=== PATIENT | male | born 1985 | race Caucasian/White ===

== ENCOUNTER 2024-03-31 08:05 | Outpatient (CLI) | payer BC, SELFPAY ==
--- NOTE | 2024-03-31 08:24 | ECG_ITS ---
SEE SCANNED COPY FOR CONFIRMED REPORT MTDD
== END 2024-03-31 08:06 | disposition home or self-care (01) ==
LOC: ANHSURGERY 08:08
PROVIDERS: PCP Family Medicine Adolescent Medicine; Visit Provider Surgery
DX: Z01.818 Encounter for other preprocedural examination (principal); K40.90 Unilateral inguinal hernia, without obstruction or gangrene, not specified as recurrent; E78.00 Pure hypercholesterolemia, unspecified
CPT/HCPCS: 36415; 86850; 86900; 86901

== ENCOUNTER 2024-04-04 00:50 | Day surgery (SDC) | payer BC, SELFPAY ==
[2024-03-27 13:33] VITALS: BMI 28.0
--- NOTE | 2024-03-27 13:46 | PC.NURSE ---
Report to the Outpatient Waiting Room, entrance under the green pavilion located off [facility], at time 0930 on date 04/04/2024. Planned Procedure Time: 11:30. Time changes happen often and if your time is changed the preop area will call you the afternoon before. - You and your visitor will be asked to self-screen and do not enter if you have any COVID symptoms. - A mask is optional within the hospital at this time. Patients may have clear liquids (water, carbonated beverages, clear teas, apple juice) until 3 hours prior to surgery with a maximum of 20 ounces. - No food from midnight until time of surgery - Infants may have breast milk until 4 hours before surgery, formula 6 hours prior to surgery. - Children will be allowed to drink immediately following surgery. If applicable, please bring a bottle or sippy cup to assist with drinking. Juice, water, soda, and popsicles are readily available. For infants on formula, please bring formula the day of surgery. Pacifiers are allowed. Take the following medications with a SIP of water the morning of surgery: N/A DO NOT STOP ANY OF YOUR OTHER PRESCRIPTION MEDICATIONS PRIOR TO SURGERY ?EXCEPT THE FOLLOWING Medications to discontinue per physician Multiviamin Date to take last dose 04/02/2024 Please no make-up, nail luxembourgish, hairspray, perfume, deodorant, or body powder the day of surgery. No jewelry (including any body piercings) or valuables the day of surgery, leave them at home. Please take a shower or bath the night before, or the morning of, surgery with an antibacterial soap. Wear comfortable, loose fitting clothing. Children are encouraged to wear pajamas. - Jewelry must be removed prior to entering the operating room. Rings and piercings that are not removed may be cut off. - The hospital will not accept responsibility for valuables. - Please leave all valuables, including medications, at home the day of surgery. If you are going home after surgery, a licensed flatbed company driver must drive you home. - NO public transportation without another adult if you receive anesthesia. - We recommend that an adult stay with you for 24 hours following discharge. - We also recommend that you do not drive, make important decision, drink alcoholic beverages, or take any drugs that were not prescribed by your health care provider for at least 24 hours after your discharge time. For Pediatric surgeries, we recommend two adults accompany the child home. Follow any additional instructions given to you from your surgeon. If you or anyone in your household have experienced Covid symptoms in the past week, please notify your surgeon or the nurse liaison at the phone number below for possible testing. Telephone instructions given to Cristopher Caldera and asked if any additional questions and then verbalized understanding. Patient advised to call surgeon office or pre surgery nurse liaison [phone] if any additional questions.
[2024-04-04] VITALS (11 sets, daily range): BP systolic 117–147; BP diastolic 78–93; PULSE 60–88; RESP 14–19; TEMP 36.1–36.2; O2SAT 96–100
[2024-04-04] MEDS: ACETAMINOPHEN 500 MG TABLET 1000 MG PO (08:25)
[2024-04-04] MEDS: KETOROLAC 15 MG/ML VIAL (*BKC) IV PUSH (08:25)
[2024-04-04] MEDS: LACTATED RINGERS 1,000 ML 30 ML IV CONT ×2 (08:25→10:29)
--- NOTE | 2024-04-04 08:50 | P.PNAN_ITS ---
Anes - Initial Pre Proc Eval Procedure: Operation Date: 04/04/24 09:30 Proposed Procedures p Laparoscopic Right Inguinal Hernia Repair with Mesh, Davinci Assisted - Ron Woodard DO Date/Time: 04/04/24 08:50 Surgeon: Ron Woodard DO Pre Op Diagnosis: Rt Ing Hernia Patient Data Age: 38 Gender: M Height: 1.75 m Weight: 86.18 kg Allergies Allergy/AdvReac Type Severity Reaction Status Date / Time Penicillins Allergy Mild Rash Verified 03/27/24 13:30 MEPERIDINE HCL Allergy Mild Vomiting Uncoded 03/27/24 13:30 Home Medications Medication Instructions Recorded Confirmed Type multivitamin 1 tablet PO DAILY 03/24/24 03/27/24 History atorvastatin 40 mg tablet 40 mg PO DAILY #90 tabs 03/27/24 03/28/24 Rx lisdexamfetamine 70 mg capsule 70 mg PO DAILY #30 caps 03/27/24 03/28/24 Rx (Vyvanse) Patient hx anesthesia problems: none Family hx anesthesia problems: none Results Review: All pre-operative results and documents have been reviewed as part of the pre- operative evaluation. [facility], LAT[facility] Past Medical History Medical History Hyperlipidemia Surgical History Surgical History History of surgery on arm 1991 Family History Family History Father Diabetes mellitus Mother Diabetes mellitus Other Heart disease Hypertension Social History Social History (Updated 03/24/24 @ 10:17 by Nhi Dobson MA) Smoking packs per day: 1 Smoking cigarettes per day: 20.0 Years smoked: 15 Smoking pack-years: 15.00 Smoking status: Former smoker Tobacco type: cigarettes Smoking end date: 03/27/22 Alcohol intake: current Drinks per week: 5 Alcohol use details: socially Substance use: current Substance use type: marijuana Last use: 03/27/2024 Do You Feel Safe in your Home?: Yes Lack of Transportation: No Lack of Food: Never True Current Housing: I Have Housing Concerned About Future Housing: No Difficulty Paying Gas/Electric Bills: No Difficulty Paying for Meds: YES Currently Unemployed: No Education: Master's Degree or Higher Difficulty w/ Childcare or Family Care: YES Living arrangements: with family Delphine Black Final PreProcedure Day of Procedure 04/04/24 08:50 Patient weight: normal Heart: regular rate and rhythm Lungs: clear to auscultation Airway: Mallampati scale class II Neurological: alert and oriented Last oral intake: >/= 8 hours ASA classification: II Emergent: no Anesthetic plan: proceed Anesthesia type and monitoring: general ETT and standard monitoring Results Review: All pre-operative results and documents have been reviewed as part of the pre- operative evaluation. Informed Consent: The patient's anesthetic plan and its attendant risks and benefits were discussed with the patient/family/POA. Questions were solicited and answers provided to the satisfaction of the patient/family/POA.
--- NOTE | 2024-04-04 09:09 | WPDHPUPDATE1 ---
History and Physical Update Update Date/Time: 04/04/24 09:09 History and Physical has been reviewed, including an updated exam of the patient. There are NO changes in the patient's condition. Risks, benefits, and alternatives have been discussed and questions answered. Patient agrees to proceed with procedure.
[2024-04-04] MEDS: CLINDAMYCIN 900 MG/D5W 50 ML 900 MG/50 ML PIGGYBACK 50 MG IVPB (09:29)
[2024-04-04] MEDS: BUPIVACAINE/EPINEPHRINE 0.5% 50 ML VIAL 30 ML INFILTRATE (09:59)
--- NOTE | 2024-04-04 10:19 | W.PM.PROC2 ---
Procedure Note - Detailed Date of Procedure 04/04/24 Pre-op Diagnosis Right inguinal hernia Post-op Diagnosis Same (Direct right inguinal hernia) Procedure Performed Laparoscopic right inguinal hernia repair with mesh, da Lissette assisted Surgeon Ron Woodard, Anesthesia General and Local (0.5% bupivacaine with epinephrine) Indications This is a 38-year-old man who presented with a symptomatic right inguinal hernia. He had noticed a bulge and some occasional discomfort over the past couple years. He was seen a year ago and wanted to delay surgery at that time. Since then he has started having some more symptoms and would like to proceed. He was found to have a reducible right inguinal hernia on physical exam. Discussions were made with the patient about treatment options and decision was made to proceed with robotic assisted laparoscopic right inguinal hernia repair with mesh. Findings Laparoscopic right inguinal hernia repair was performed. The patient was found to have a direct right inguinal hernia. There was no evidence of a left inguinal hernia. A robotic transabdominal preperitoneal approach was utilized for repair. Once a wide enough preperitoneal pocket was created in the hernia sac was reduced, I then placed a large right 3DMax mid mesh overlying the entire right myopectineal orifice. Description of Procedure Procedure as well as risks, benefits, and alternatives were discussed with the patient. Written consent was obtained and placed in chart prior to procedure. Patient was brought back to surgical suite. He was placed supine on operating table. Time-out was done to confirm patient and procedure. He was then intubated by Anesthesia Department. His abdomen was prepped and draped in sterile fashion using chlorhexidine prep. 0.5% bupivacaine with epinephrine was infiltrated at each location for incision. An 8 mm incision was made in the left lateral abdomen, and a 5 mm Optiview trocar was advanced through the abdominal layers under direct visualization. Once inside the abdominal cavity, carbon dioxide insufflation was used to create a pneumoperitoneum. A camera was inserted and the abdominal cavity was inspected. The patient was placed in slight Trendelenburg position. An 8 millimeter incision was made on the right lateral abdomen and an 8 millimeter trocar was inserted under direct visualization. Another 8 millimeter incision was made just superior to the umbilicus and an 8 millimeter trocar was inserted under direct visualization. The 5 mm port was then removed and this was replaced with another 8 mm robotic port. The robotic arms were brought up to the patient's bedside and secured to the ports. The camera and instruments were inserted. I then moved over to the robotic console and took control of the camera and instruments. After careful inspection of the abdominal cavity, I began scoring the peritoneum along the right lower quadrant using scissors with electrocautery. The preperitoneal plane was entered and this was carefully dissected caudally along the inferior epigastric vessels. Careful dissection with scissors with electrocautery and blunt dissection was used to continue this dissection. I dissected far enough laterally to allow for mesh placement, and also dissected medially to identify the pubic arch and Markus's ligament. The hernia sac was identified and carefully dissected posteriorly. The cord contents were also identified and the peritoneum was carefully dissected far enough posteriorly to allow for mesh placement. Once an adequate pocket was created, I then placed the mesh within the preperitoneal pocket and carefully unfolded it. The mesh was centered on the hernia defect with adequate overlap circumferentially. The inferior edge of the mesh was inspected to ensure that it was far enough away from the peritoneal edge. The mesh appeared in proper position overlying the entire myopectineal orifice. The mesh was sec
[2024-04-04] MEDS: ONDANSETRON INJ 4 MG/2 ML VIAL IV PUSH (10:59)
[2024-04-04] MEDS: fentaNYL CITRATE INJ (*CRX) 100 MCG/2 ML VIAL 25 MCG IV PUSH ×2 (11:03→11:06)
[2024-04-04] MEDS: SCOPOLAMINE 1 MG PATCH 1 PATCH TRANSDERM (11:16)
[2024-04-04] MEDS: diphenhydrAMINE HCl INJ 50 MG/ML VIAL 12.5 MG IV PUSH (11:18)
== END 2024-04-04 13:04 | disposition home or self-care (01) ==
PROVIDERS: PCP Family Medicine Adolescent Medicine; Visit Provider Surgery
PROC: 8E0Y4CZ Robotic Assisted Procedure of Lower Extremity, Percutaneous Endoscopic Approach (ICD-10-PCS; CPT 49650; principal; 2024-04-04 09:30)
DX: K40.90 Unilateral inguinal hernia, without obstruction or gangrene, not specified as recurrent (principal); E78.5 Hyperlipidemia, unspecified; Z87.891 Personal history of nicotine dependence; F12.90 Cannabis use, unspecified, uncomplicated
CPT/HCPCS: 49650; S2900; 36415; 86850; 86900; 86901; A9270; C1781; J1100; J1200; J1885; J2250; J2405; J2704; J3010; J7120

== ENCOUNTER 2025-03-22 08:15 | Outpatient (RCR) | payer BC, SELFPAY ==
[2025-03-22 08:20] VITALS: BMI 29.7
[2025-03-22 08:23] VITALS: BMI 29.7
== END 2025-05-29 07:50 | disposition home or self-care (01) ==
LOC: ANHDMC 08:15
PROVIDERS: PCP Nurse Practitioner Family; Visit Provider Nurse Practitioner Family
DX: E78.00 Pure hypercholesterolemia, unspecified (principal); R73.01 Impaired fasting glucose; Z71.3 Dietary counseling and surveillance
CPT/HCPCS: 97802; 97803